=== PATIENT | female | born 1955 | race Caucasian/White ===

== ENCOUNTER 2020-03-16 13:53 | Emergency (ER) | payer MEDICARE, MEDICAID ==
[~2020-03-16] VITALS: Ht 154.9 cm; Wt 61.8 kg
[~2020-03-16 13:53] MED LIST: CALC-839 PR; CALC1TAB81 PO; CARB15DR91 EACH EAR; CYCL1DRO EACHEYE; ESCI10TA45 PO; HYDR200T84 PO; HYDR25SU48 RC; LEVE500T99 PO; LEVO50TA67 PO; MELO-82 PO; OMEP-84 PO; TRAZ-91 PO; [UNRECOGNIZED DRUG - CODE] PO
[2020-03-16 16:59] VITALS: BP 149/82
== END 2020-03-16 17:02 | disposition home or self-care (01) ==
LOC: ER 13:53
DX: M79.604 Pain in right leg (principal); J44.9 Chronic obstructive pulmonary disease, unspecified; K21.9 Gastro-esophageal reflux disease without esophagitis; E03.9 Hypothyroidism, unspecified; F19.90 Other psychoactive substance use, unspecified, uncomplicated; Z88.5 Allergy status to narcotic agent; Z79.899 Other long term (current) drug therapy
CPT/HCPCS: 72128; 72131; 73700; 93971; 99285

== ENCOUNTER 2020-08-24 14:36 | Emergency (ER) | payer MEDICARE, MEDICAID ==
[~2020-08-24] VITALS: Ht 144.8 cm; Wt 65.0 kg
--- NOTE | 2020-08-24 15:08 | NUR ---
PT TO CT
[2020-08-24] MEDS ORDERED: LIDOcaine/PRILOcaine 5gm cream TP ONE (15:10)
[2020-08-24 15:11] LABS: BASOPHILS % (AUTO) 0.6 % (0-1); EOSINOPHILS # (AUTO) 0.1 X10'3 (0-0.9); HEMATOCRIT 41.5 % (35.0-45.0); HEMOGLOBIN 13.8 g/dl (12.0-16.0); LYMPHOCYTES # (AUTO) 1.2 X10'3 (1.1-4.8); LYMPHOCYTES % (AUTO) 28.7 % (21-51); MEAN CORPUSCULAR HEMOGLOBIN 31.8 PG (27.0-31.0); MEAN CORPUSCULAR HGB CONC 33.3 g/dL (33.0-36.5); MEAN CORPUSCULAR VOLUME 95.5 FL (78-98); MONOCYTES # (AUTO) 0.8 X10'3 (0-0.9); MONOCYTES % (AUTO) 20.7 % (2-12); NEUTROPHILS # (AUTO) 1.9 X10'3 (1.8-7.7); PLATELET COUNT 162 X10'3 (140-440); RED BLOOD COUNT 4.34 X10'6 (4.20-5.60); RED CELL DISTRIBUTION WIDTH 14.3 % (11.5-14.5)
[2020-08-24 15:24] LABS: ALANINE AMINOTRANSFERASE 21 U/L (12-78); ALBUMIN 3.9 G/DL (3.4-5.0); ALBUMIN/GLOBULIN RATIO 0.9 (1.1-1.5); ALKALINE PHOSPHATASE 76 IU/L (46-116); ANION GAP 9 (8-16); ASPARTATE AMINO TRANSFERASE 21 U/L (10-37); BILIRUBIN,TOTAL 0.3 MG/DL (0.1-1.0); BLOOD UREA NITROGEN 26 MG/DL (7-18); BUN/CREATININE RATIO 38.8 (6.6-38.0); CALCIUM 9.2 MG/DL (8.5-10.1); CHLORIDE 103 MMOL/L (99-107); CREATININE 0.67 MG/DL (0.40-0.90); GLUCOSE 106 MG/DL (70-104); POTASSIUM 4.6 MMOL/L (3.5-5.1); SODIUM 141 MMOL/L (135-145); TOTAL CARBON DIOXIDE 28.6 MMOL/L (24-32); TOTAL PROTEIN 8.2 G/DL (6.4-8.2); eGFR 89 ML/MIN
[2020-08-24 15:41] LABS: PLATELET ESTIMATE NORMAL; TOTAL CELLS COUNTED 100
[2020-08-24] MEDS ORDERED: normal saline 1000ml 1,000 ML IV ONE (16:45)
[2020-08-24] MEDS ORDERED: bacitracin 15gm ointment TP ONE (16:55)
--- NOTE | 2020-08-24 16:55 | NUR ---
Wound cleaned with peroxide and ns.
[2020-08-24 17:05] VITALS: BP 155/75
--- NOTE | 2020-08-24 17:15 | NUR ---
OK TO DC URINALYSIS, PER DR YOUNGER
--- NOTE | 2020-08-24 17:31 | NUR ---
DR YOUNGER IN ROOM FOR SUTURING.
[2020-08-24] MEDS ORDERED: TETanus/Pertussis (Acell)/Diphther VAC/PF (Tdap-Adult) 0.5ml syringe IMVAC ONE (17:35)
== END 2020-08-24 18:24 | disposition home or self-care (01) ==
LOC: ER 14:37
DX: S12.590A Other displaced fracture of sixth cervical vertebra, initial encounter for closed fracture (principal); S01.81XA Laceration without foreign body of other part of head, initial encounter; J44.9 Chronic obstructive pulmonary disease, unspecified; K21.9 Gastro-esophageal reflux disease without esophagitis; E03.9 Hypothyroidism, unspecified; Z20.3 Contact with and (suspected) exposure to rabies; Z86.69 Personal history of other diseases of the nervous system and sense organs; Z88.5 Allergy status to narcotic agent; Z88.8 Allergy status to other drugs, medicaments and biological substances; Z79.899 Other long term (current) drug therapy; W19.XXXA Unspecified fall, initial encounter; Y93.89 Activity, other specified; Y92.89 Other specified places as the place of occurrence of the external cause; Y99.8 Other external cause status
CPT/HCPCS: 12011; 36415; 70450; 72125; 80053; 83735; 85007; 85025; 90471; 90715; 99285

== ENCOUNTER 2020-09-05 10:39 | Emergency (ER) | payer MEDICARE, MEDICAID ==
[~2020-09-05] VITALS: Ht 144.8 cm; Wt 61.8 kg
[2020-09-05 10:59] VITALS: BP 126/81
[2020-09-05 12:19] LABS: BASOPHILS % (AUTO) 0.9 % (0-1); EOSINOPHILS # (AUTO) 0.1 X10'3 (0-0.9); HEMATOCRIT 42.1 % (35.0-45.0); HEMOGLOBIN 14.4 g/dl (12.0-16.0); LYMPHOCYTES # (AUTO) 1.1 X10'3 (1.1-4.8); MEAN CORPUSCULAR HEMOGLOBIN 32.1 PG (27.0-31.0); MEAN CORPUSCULAR HGB CONC 34.2 g/dL (33.0-36.5); MEAN CORPUSCULAR VOLUME 93.8 FL (78-98); MEAN PLATELET VOLUME 7.6 FL (7.4-10.4); MONOCYTES # (AUTO) 0.5 X10'3 (0-0.9); MONOCYTES % (AUTO) 12.4 % (2-12); NEUTROPHILS # (AUTO) 2.6 X10'3 (1.8-7.7); NEUTROPHILS % (AUTO) 59.7 % (42-75); PLATELET COUNT 213 X10'3 (140-440); RED BLOOD COUNT 4.48 X10'6 (4.20-5.60); RED CELL DISTRIBUTION WIDTH 14.1 % (11.5-14.5); WHITE BLOOD COUNT 4.4 X10'3 (4.5-11.0)
[2020-09-05] MEDS ORDERED: AMOX-422 PO (12:25)
[2020-09-05 12:26] LABS: PARTIAL THROMBOPLASTIN TIME 30 SECONDS (22-32)
[2020-09-05 12:28] LABS: ALANINE AMINOTRANSFERASE 18 U/L (12-78); ALBUMIN 3.8 G/DL (3.4-5.0); ALBUMIN/GLOBULIN RATIO 0.8 (1.1-1.5); ALKALINE PHOSPHATASE 88 IU/L (46-116); ANION GAP 8 (8-16); ASPARTATE AMINO TRANSFERASE 18 U/L (10-37); BILIRUBIN,TOTAL 0.3 MG/DL (0.1-1.0); BLOOD UREA NITROGEN 26 MG/DL (7-18); BUN/CREATININE RATIO 37.1 (6.6-38.0); CALCIUM 9.7 MG/DL (8.5-10.1); CHLORIDE 104 MMOL/L (99-107); GLUCOSE 94 MG/DL (70-104); POTASSIUM 4.6 MMOL/L (3.5-5.1); SODIUM 139 MMOL/L (135-145); TOTAL CARBON DIOXIDE 27.4 MMOL/L (24-32); TOTAL PROTEIN 8.5 G/DL (6.4-8.2); eGFR 85 ML/MIN
== END 2020-09-05 12:58 | disposition home or self-care (01) ==
LOC: ER 10:41
DX: S01.81XD Laceration without foreign body of other part of head, subsequent encounter (principal); L03.211 Cellulitis of face; Z48.00 Encounter for change or removal of nonsurgical wound dressing; R62.50 Unspecified lack of expected normal physiological development in childhood; G43.909 Migraine, unspecified, not intractable, without status migrainosus; J44.9 Chronic obstructive pulmonary disease, unspecified; K21.9 Gastro-esophageal reflux disease without esophagitis; E03.9 Hypothyroidism, unspecified; Z79.899 Other long term (current) drug therapy; Z79.2 Long term (current) use of antibiotics; Z88.6 Allergy status to analgesic agent; Z88.8 Allergy status to other drugs, medicaments and biological substances; X58.XXXD Exposure to other specified factors, subsequent encounter
CPT/HCPCS: 36415; 80053; 83605; 85025; 85610; 85730; 99283

== ENCOUNTER 2020-09-10 08:56 | Emergency (ER) | payer MEDICARE, OTHER ==
[~2020-09-10] VITALS: Ht 144.8 cm; Wt 62.3 kg
[~2020-09-10 08:56] MED LIST changes: +AMOX-422 PO
[2020-09-10 10:00] VITALS: BP 120/68
[2020-09-10 10:08] LABS: BASOPHILS % (AUTO) 0.9 % (0-1); EOSINOPHILS # (AUTO) 0.2 X10'3 (0-0.9); EOSINOPHILS % (AUTO) 3.8 % (0-6); HEMOGLOBIN 13.2 g/dl (12.0-16.0); LYMPHOCYTES # (AUTO) 1.1 X10'3 (1.1-4.8); LYMPHOCYTES % (AUTO) 25.7 % (21-51); MEAN CORPUSCULAR HGB CONC 33.8 g/dL (33.0-36.5); MEAN CORPUSCULAR VOLUME 94.5 FL (78-98); MEAN PLATELET VOLUME 7.6 FL (7.4-10.4); MONOCYTES # (AUTO) 0.6 X10'3 (0-0.9); MONOCYTES % (AUTO) 14.3 % (2-12); NEUTROPHILS # (AUTO) 2.3 X10'3 (1.8-7.7); NEUTROPHILS % (AUTO) 55.3 % (42-75); PLATELET COUNT 213 X10'3 (140-440); RED BLOOD COUNT 4.12 X10'6 (4.20-5.60); RED CELL DISTRIBUTION WIDTH 14.4 % (11.5-14.5); WHITE BLOOD COUNT 4.1 X10'3 (4.5-11.0)
[2020-09-10 10:29] LABS: ALANINE AMINOTRANSFERASE 20 U/L (12-78); ALBUMIN 3.4 G/DL (3.4-5.0); ALBUMIN/GLOBULIN RATIO 0.8 (1.1-1.5); ALKALINE PHOSPHATASE 76 IU/L (46-116); ANION GAP 8 (8-16); ASPARTATE AMINO TRANSFERASE 23 U/L (10-37); BILIRUBIN,TOTAL 0.3 MG/DL (0.1-1.0); BLOOD UREA NITROGEN 24 MG/DL (7-18); BUN/CREATININE RATIO 29.6 (6.6-38.0); CALCIUM 9.3 MG/DL (8.5-10.1); CHLORIDE 105 MMOL/L (99-107); CREATININE 0.81 MG/DL (0.40-0.90); GLUCOSE 93 MG/DL (70-104); POTASSIUM 4.8 MMOL/L (3.5-5.1); SODIUM 142 MMOL/L (135-145); TOTAL CARBON DIOXIDE 29.3 MMOL/L (24-32); TOTAL PROTEIN 7.7 G/DL (6.4-8.2); eGFR 71 ML/MIN
[2020-09-10] MEDS ORDERED: HYDR25SU32 RC (11:36)
== END 2020-09-10 12:02 | disposition home or self-care (01) ==
LOC: ER 08:56
DX: R19.7 Diarrhea, unspecified (principal); K92.2 Gastrointestinal hemorrhage, unspecified; J44.9 Chronic obstructive pulmonary disease, unspecified; K21.9 Gastro-esophageal reflux disease without esophagitis; E03.9 Hypothyroidism, unspecified; Z86.69 Personal history of other diseases of the nervous system and sense organs; Z88.5 Allergy status to narcotic agent; Z88.8 Allergy status to other drugs, medicaments and biological substances; Z79.2 Long term (current) use of antibiotics; Z79.899 Other long term (current) drug therapy
CPT/HCPCS: 36415; 80053; 85025; 85610; 99284

== ENCOUNTER 2022-01-09 18:06 | Inpatient (IN) | payer MEDICARE, MEDICAID ==
[~2022-01-09] VITALS: Ht 154.9 cm; Wt 62.3 kg
[~2022-01-09 18:06] MED LIST changes: -AMOX-422 PO; +HYDR25SU32 RC
[2022-01-09] MEDS ORDERED: normal saline 1000ML IV soln IVB ONE (18:45)
[2022-01-09 19:19] LABS: BASOPHILS % (AUTO) 0.5 % (0-1); EOSINOPHILS % (AUTO) 0.7 % (0-6); HEMATOCRIT 26.8 % (35.0-45.0); LYMPHOCYTES # (AUTO) 1.2 X10'3 (1.1-4.8); LYMPHOCYTES % (AUTO) 21.3 % (21-51); MEAN CORPUSCULAR HGB CONC 33.5 g/dL (33.0-36.5); MEAN CORPUSCULAR VOLUME 92.7 FL (78-98); MEAN PLATELET VOLUME 8.2 FL (7.4-10.4); MONOCYTES # (AUTO) 0.6 X10'3 (0-0.9); MONOCYTES % (AUTO) 11.3 % (2-12); NEUTROPHILS # (AUTO) 3.7 X10'3 (1.8-7.7); NEUTROPHILS % (AUTO) 66.2 % (42-75); PLATELET COUNT 185 X10'3 (140-440); RED BLOOD COUNT 2.89 X10'6 (4.20-5.60); RED CELL DISTRIBUTION WIDTH 14.3 % (11.5-14.5); WHITE BLOOD COUNT 5.6 X10'3 (4.5-11.0)
[2022-01-09 19:30] LABS: ALANINE AMINOTRANSFERASE 15 U/L (12-78); ALBUMIN/GLOBULIN RATIO 0.9 (1.1-1.5); ALKALINE PHOSPHATASE 58 IU/L (46-116); ANION GAP 8 (8-16); ASPARTATE AMINO TRANSFERASE 16 U/L (10-37); BILIRUBIN,TOTAL 0.1 MG/DL (0.1-1.0); BLOOD UREA NITROGEN 16 MG/DL (7-18); BUN/CREATININE RATIO 20.3 (6.6-38.0); CHLORIDE 101 MMOL/L (99-107); CREATININE 0.79 MG/DL (0.40-0.90); GLUCOSE 124 MG/DL (70-104); LIPASE 123 U/L (73-393); POTASSIUM 4.5 MMOL/L (3.5-5.1); SODIUM 136 MMOL/L (135-145); TOTAL CARBON DIOXIDE 26.9 MMOL/L (24-32); TOTAL PROTEIN 6.4 G/DL (6.4-8.2); eGFR 73 ML/MIN
[2022-01-09 19:36] LABS: CALCIUM 8.7 MG/DL (8.5-10.1)
[2022-01-09 19:57] LABS: CLARITY,URINE CLEAR (Clear); COLOR,URINE YELLOW (Yellow); GLUCOSE, URINE NEGATIVE (Neg); KETONES,URINE NEGATIVE (Neg); LEUKOCYTE ESTERASE ,URINE NEGATIVE (Neg); NITRITES, URINE NEGATIVE (Neg); OCCULT BLOOD,URINE NEGATIVE (Neg); PROTEIN,URINE NEGATIVE (Neg); UROBILINOGEN,URINE 0.2 E.U/dL (0.2-1.0)
[2022-01-09 19:58] LABS: UA COLLECTION TYPE STRAIGHT CATH
[2022-01-09] MEDS ORDERED: ALEN70TA80 PO (19:59)
[2022-01-09] MEDS ORDERED: HYDR25SU48 RC (19:59)
[2022-01-09] MEDS ORDERED: BISA10SU11 RC (20:01)
[2022-01-09] MEDS ORDERED: HYDR200T84 PO (20:05)
[2022-01-09] MEDS ORDERED: OMEG-133 PO ×2 (20:05→22:10)
[2022-01-09] MEDS ORDERED: LACT30003 PO (20:08)
[2022-01-09] MEDS ORDERED: LORA-269 PO (20:13)
[2022-01-09] MEDS ORDERED: MAGN250T11 PO (20:14)
[2022-01-09] MEDS ORDERED: acetaminophen 325mg tablet PO PRN (20:15)
[2022-01-09] MEDS ORDERED: POTASSIUM BICARB 20meq eff tab 20 MEQ TABLET.EFF PO PRN ×2 (20:15)
[2022-01-09] MEDS ORDERED: ondansetron/PF 4mg/2ml inj IV PRN (20:15)
[2022-01-09] MEDS ORDERED: magnesium 2GM in 50ml NS 50 ML IV PRN (20:15)
[2022-01-09] MEDS ORDERED: mag hydrox/Alum hydrox/simeth 30ml oral suspension PO PRN (20:15)
[2022-01-09] MEDS ORDERED: magnesium 4gm in 100ml NS 100 ML IV PRN (20:15)
[2022-01-09] MEDS ORDERED: potassium CL 10mEq/100ml bag 100 ML IV PRN (20:15)
[2022-01-09] MEDS ORDERED: magnesium hydroxide 30ml (MOM) UD suspension PO PRN ×2 (20:15→22:30)
[2022-01-09] MEDS ORDERED: LACO100T4 PO (20:31)
[2022-01-09 20:41] LABS: OCCULT BLOOD STOOL POSITIVE (Neg)
[2022-01-09] MEDS: pantoprazole 40MG/NS 100ML BAG 100 ML IV SCH (21:36)
[2022-01-09] MEDS ORDERED: CARB15DR91 EACH EAR (22:10)
[2022-01-09] MEDS ORDERED: CHOL400T8 PO (22:10)
[2022-01-09] MEDS ORDERED: ASCO-134 PO (22:10)
[2022-01-09] MEDS ORDERED: ROBDML PO (22:10)
[2022-01-09] MEDS ORDERED: CALC500T11 PO (22:10)
[2022-01-09] MEDS ORDERED: LEVE500T PO (22:10)
[2022-01-09] MEDS ORDERED: ESCI5TAB17 PO (22:10)
[2022-01-09] MEDS ORDERED: DIVA500T9 PO (22:10)
[2022-01-09] MEDS ORDERED: LACT1TAB6 PO (22:10)
[2022-01-09] MEDS ORDERED: DOCU100C40 PO (22:10)
[2022-01-09] MEDS ORDERED: MAGN400O6 PO (22:10)
--- NOTE | 2022-01-09 22:19 | NUR ---
Per caregiver: Pt is lactose intolerant. She takes her pills whole in lactose free yogurt. Her diet consistency is blended.
--- NOTE | 2022-01-09 22:19 | NUR ---
PAGER ID: [phone] MESSAGE: Andie Eddy O/N [id number] A needs her keppra and vimpat ordered for tonight and she will also need fluid orders. (npo)
[2022-01-09] MEDS ORDERED: guaiFENesin/DM 10ml UD oral syrup PO PRN (22:30)
[2022-01-09] MEDS ORDERED: LORazepam 1 MG tablet PO PRN (22:30)
[2022-01-09] MEDS ORDERED: bisacodyl 10mg suppository rectal RC PRN (22:30)
[2022-01-09] MEDS ORDERED: non-formulary drug (Alendronate Sodium 1 TAB) PO SCH (22:30)
[2022-01-09] MEDS ORDERED: levetiracetam 100mg/ml oral solution 5ml UD cup PO ONE (22:35)
[2022-01-09 22:40] VITALS: BP 132/46
[2022-01-09] MEDS: levetiracetam 250mg tablet PO SCH (23:35)
[2022-01-10] VITALS (14 sets, daily range): BP systolic 126–150; BP diastolic 53–113
[2022-01-10] MEDS: pantoprazole 40MG/NS 100ML BAG 100 ML IV SCH ×5 (01:53→22:34)
[2022-01-10 06:13] LABS: HEMATOCRIT 24.4 % (35.0-45.0); HEMOGLOBIN 8.1 g/dl (12.0-16.0); MEAN CORPUSCULAR HGB CONC 33.2 g/dL (33.0-36.5); MEAN CORPUSCULAR VOLUME 93.2 FL (78-98); MEAN PLATELET VOLUME 7.9 FL (7.4-10.4); PLATELET COUNT 183 X10'3 (140-440); RED BLOOD COUNT 2.61 X10'6 (4.20-5.60); RED CELL DISTRIBUTION WIDTH 14.6 % (11.5-14.5); WHITE BLOOD COUNT 6.9 X10'3 (4.5-11.0)
--- NOTE | 2022-01-10 06:41 | NUR ---
Patient in room ORTHO 4015. I have received report from LELE Billy and had the opportunity to ask questions and assume patient care.
[2022-01-10 06:47] LABS: ALANINE AMINOTRANSFERASE 13 U/L (12-78); ALBUMIN 3.1 G/DL (3.4-5.0); ALKALINE PHOSPHATASE 51 IU/L (46-116); ANION GAP 9 (8-16); ASPARTATE AMINO TRANSFERASE 19 U/L (10-37); BILIRUBIN,TOTAL 0.2 MG/DL (0.1-1.0); BLOOD UREA NITROGEN 11 MG/DL (7-18); BUN/CREATININE RATIO 17.7 (6.6-38.0); CALCIUM 8.7 MG/DL (8.5-10.1); CHLORIDE 107 MMOL/L (99-107); CREATININE 0.62 MG/DL (0.40-0.90); GLUCOSE 101 MG/DL (70-104); POTASSIUM 4.4 MMOL/L (3.5-5.1); SODIUM 141 MMOL/L (135-145); TOTAL CARBON DIOXIDE 24.9 MMOL/L (24-32); TOTAL PROTEIN 6.2 G/DL (6.4-8.2); eGFR > 90 ML/MIN
[2022-01-10] MEDS: levoTHYROXINE 25mcg tablet PO SCH (07:26)
[2022-01-10] MEDS: ESCITALOPRAM OXALATE 5 MG TABLET PO SCH (07:26)
[2022-01-10] MEDS: pantoprazole 40mg Tablet.DR PO SCH (07:26)
[2022-01-10] MEDS: magnesium oxide 400mg tablet PO SCH (07:26)
[2022-01-10] MEDS: LACOSAMIDE 50 MG TABLET PO SCH ×2 (07:27→20:28)
[2022-01-10] MEDS: docusate sod 100mg capsule PO SCH ×4 (07:27→20:28)
[2022-01-10] MEDS: lactobacillus rhamnosus 10,000 MMU CELLS/CAPSULE PO SCH (07:28)
[2022-01-10] MEDS: ascorbic acid 500mg tablet PO SCH ×2 (07:28→20:28)
[2022-01-10] MEDS: OMEGA-3/DHA/EPA/FISH OIL 1 EACH CAPSULE.DR PO SCH (07:28)
[2022-01-10] MEDS: levetiracetam 250mg tablet PO SCH ×2 (07:28→20:29)
[2022-01-10] MEDS: cholecalciferol (vitamin D3) 400 unit (10mcg) tablet PO SCH (07:29)
[2022-01-10] MEDS: hydroxychloroquine 200mg tablet PO SCH (07:29)
[2022-01-10] MEDS: cycloSPORINE 0.05% ophthalmic emulsion EACHEYE SCH ×2 (07:29→20:30)
[2022-01-10] MEDS: hydrocortisone acetate 25mg rectal suppository RC SCH ×2 (07:29→20:28)
[2022-01-10] MEDS: calcium carbonate 500mg chew tablet PO SCH ×3 (07:30→17:57)
[2022-01-10] MEDS: divalproex sod 250mg ER (24-hour) tablet PO SCH (07:30)
[2022-01-10] MEDS: K and/or MAG REPLACEMENT MC SCH ×2 (08:00→20:00)
[2022-01-10] MEDS ORDERED: LACTASE 9000 UNIT PO SCH (08:00)
--- NOTE | 2022-01-10 10:44 | NUR ---
Patients mother yasmine called with updated phone number [phone]. Let Yasmine know to standby for phone call as Dr. Alegre is trying to reach her. Called to Dr Alegre number [phone] awaiting call back.
[2022-01-10 11:17] LABS: HEMATOCRIT 22.9 % (35.0-45.0); HEMOGLOBIN 7.6 g/dl (12.0-16.0); MEAN CORPUSCULAR HEMOGLOBIN 30.8 PG (27.0-31.0); MEAN CORPUSCULAR HGB CONC 33.4 g/dL (33.0-36.5); MEAN CORPUSCULAR VOLUME 92.2 FL (78-98); MEAN PLATELET VOLUME 7.8 FL (7.4-10.4); PLATELET COUNT 173 X10'3 (140-440); RED BLOOD COUNT 2.48 X10'6 (4.20-5.60); RED CELL DISTRIBUTION WIDTH 14.5 % (11.5-14.5)
[2022-01-10 11:28] LABS: APTT 26 SECONDS (22-32)
--- NOTE | 2022-01-10 12:13 | NUR ---
Patient down to GI lab.
[2022-01-10] MEDS ORDERED: MIDAZolam 1 MG/ML 5ML VIAL ONE (12:33)
[2022-01-10] MEDS ORDERED: fentaNYL/PF 50MCG/1 ML 2ML syringe ONE (12:33)
[2022-01-10] MEDS ORDERED: LIDOcaine Viscous 15ml cup ONE (12:33)
--- NOTE | 2022-01-10 18:36 | NUR ---
Problems reprioritized. Patient report given, questions answered & plan of care reviewed with Hortensia Rn.
[2022-01-10 20:11] LABS: HEMOGLOBIN 7.4 g/dl (12.0-16.0); MEAN CORPUSCULAR HEMOGLOBIN 31.2 PG (27.0-31.0); MEAN CORPUSCULAR HGB CONC 33.7 g/dL (33.0-36.5); MEAN CORPUSCULAR VOLUME 92.4 FL (78-98); MEAN PLATELET VOLUME 7.4 FL (7.4-10.4); PLATELET COUNT 177 X10'3 (140-440); RED BLOOD COUNT 2.37 X10'6 (4.20-5.60); RED CELL DISTRIBUTION WIDTH 14.4 % (11.5-14.5); WHITE BLOOD COUNT 6.5 X10'3 (4.5-11.0)
[2022-01-10 20:15] LABS: HEMATOCRIT 21.9 % (35.0-45.0)
[2022-01-10 20:25] LABS: % IRON SATURATION 7 % (11-46); IRON 24 UG/DL (49-151); TOTAL IRON BINDING CAPACITY 334 UG/DL (259-388)
[2022-01-11] VITALS (8 sets, daily range): BP systolic 120–147; BP diastolic 59–91
[2022-01-11] MEDS: pantoprazole 40MG/NS 100ML BAG 100 ML IV SCH ×2 (05:18→06:00)
[2022-01-11 06:08] LABS: HEMOGLOBIN 7.1 g/dl (12.0-16.0); MEAN CORPUSCULAR HEMOGLOBIN 31.4 PG (27.0-31.0); MEAN CORPUSCULAR HGB CONC 33.3 g/dL (33.0-36.5); MEAN CORPUSCULAR VOLUME 94.4 FL (78-98); MEAN PLATELET VOLUME 8.1 FL (7.4-10.4); PLATELET COUNT 180 X10'3 (140-440); RED BLOOD COUNT 2.25 X10'6 (4.20-5.60); RED CELL DISTRIBUTION WIDTH 14.8 % (11.5-14.5); WHITE BLOOD COUNT 6.7 X10'3 (4.5-11.0)
[2022-01-11 06:13] LABS: HEMATOCRIT 21.2 % (35.0-45.0)
--- NOTE | 2022-01-11 06:21 | NUR ---
PAGED DR DAVIS RE: PAGER ID: [phone] MESSAGE: EMILY MARTINEZ. [facility] 7.1 HCT 21.2. NOAH 5430 O/N Addendum: 01/11/22 at 0623 by Sherlyn Dougherty RN PER DR DAVIS, GET TYPE AND SCREEN. NO TRANSFUSION AT THIS TIME
[2022-01-11 06:30] LABS: ALANINE AMINOTRANSFERASE 15 U/L (12-78); ALBUMIN/GLOBULIN RATIO 0.9 (1.1-1.5); ALKALINE PHOSPHATASE 56 IU/L (46-116); ANION GAP 8 (8-16); ASPARTATE AMINO TRANSFERASE 19 U/L (10-37); BILIRUBIN,TOTAL 0.2 MG/DL (0.1-1.0); BLOOD UREA NITROGEN 7 MG/DL (7-18); BUN/CREATININE RATIO 10.9 (6.6-38.0); CALCIUM 8.7 MG/DL (8.5-10.1); CHLORIDE 106 MMOL/L (99-107); CREATININE 0.64 MG/DL (0.40-0.90); GLUCOSE 91 MG/DL (70-104); POTASSIUM 4.2 MMOL/L (3.5-5.1); SODIUM 141 MMOL/L (135-145); TOTAL CARBON DIOXIDE 27.1 MMOL/L (24-32); TOTAL PROTEIN 6.4 G/DL (6.4-8.2); eGFR > 90 ML/MIN
--- NOTE | 2022-01-11 06:45 | NUR ---
Patient in room ORTHO 4015. I have received report from CALLY RN and had the opportunity to ask questions and assume patient care.
[2022-01-11] MEDS: K and/or MAG REPLACEMENT MC SCH ×2 (08:00→20:00)
[2022-01-11] MEDS: docusate sod 100mg capsule PO SCH ×4 (08:00→20:12)
[2022-01-11] MEDS: levoTHYROXINE 25mcg tablet PO SCH (08:56)
[2022-01-11] MEDS: magnesium oxide 400mg tablet PO SCH (08:56)
[2022-01-11] MEDS: pantoprazole 40mg Tablet.DR PO SCH (08:56)
[2022-01-11] MEDS: calcium carbonate 500mg chew tablet PO SCH ×3 (08:57→20:12)
[2022-01-11] MEDS: OMEGA-3/DHA/EPA/FISH OIL 1 EACH CAPSULE.DR PO SCH (08:57)
[2022-01-11] MEDS: cholecalciferol (vitamin D3) 400 unit (10mcg) tablet PO SCH (08:57)
[2022-01-11] MEDS: ascorbic acid 500mg tablet PO SCH ×2 (08:57→20:12)
[2022-01-11] MEDS: ESCITALOPRAM OXALATE 5 MG TABLET PO SCH (08:57)
[2022-01-11] MEDS: hydrocortisone acetate 25mg rectal suppository RC SCH ×2 (08:57→20:12)
[2022-01-11] MEDS: hydroxychloroquine 200mg tablet PO SCH (08:57)
[2022-01-11] MEDS: levetiracetam 250mg tablet PO SCH ×2 (08:57→20:13)
[2022-01-11] MEDS: lactobacillus rhamnosus 10,000 MMU CELLS/CAPSULE PO SCH (08:57)
[2022-01-11] MEDS: LACOSAMIDE 50 MG TABLET PO SCH ×2 (08:57→20:12)
[2022-01-11] MEDS: divalproex sod 250mg ER (24-hour) tablet PO SCH (08:57)
[2022-01-11] MEDS: cycloSPORINE 0.05% ophthalmic emulsion EACHEYE SCH ×2 (08:58→20:13)
[2022-01-11 10:57] LABS: MEAN CORPUSCULAR HGB CONC 33.4 g/dL (33.0-36.5); MEAN CORPUSCULAR VOLUME 92.9 FL (78-98); MEAN PLATELET VOLUME 7.9 FL (7.4-10.4); PLATELET COUNT 168 X10'3 (140-440); RED BLOOD COUNT 2.11 X10'6 (4.20-5.60); RED CELL DISTRIBUTION WIDTH 14.4 % (11.5-14.5); WHITE BLOOD COUNT 5.2 X10'3 (4.5-11.0)
[2022-01-11 10:59] LABS: HEMATOCRIT 19.6 % (35.0-45.0); HEMOGLOBIN 6.5 g/dl (12.0-16.0)
[2022-01-11] MEDS ORDERED: tranexamic acid 1gm/0.7% sal. 100 ML IV ONE (11:15)
[2022-01-11] MEDS ORDERED: tranexamic acid inj. 1,000 MG in normal saline 100ml IV soln 100 ML IV ONE (11:40)
[2022-01-11 13:17] LABS: % IRON SATURATION 10 % (11-46); IRON 32 UG/DL (49-151); TOTAL IRON BINDING CAPACITY 307 UG/DL (259-388)
--- NOTE | 2022-01-11 18:45 | NUR ---
Problems reprioritized. Patient report given, questions answered & plan of care reviewed with PAT RN.
[2022-01-11 19:11] LABS: HEMATOCRIT 26.1 % (35.0-45.0); HEMOGLOBIN 8.7 g/dl (12.0-16.0); MEAN CORPUSCULAR HEMOGLOBIN 30.8 PG (27.0-31.0); MEAN CORPUSCULAR HGB CONC 33.5 g/dL (33.0-36.5); MEAN CORPUSCULAR VOLUME 91.8 FL (78-98); MEAN PLATELET VOLUME 7.7 FL (7.4-10.4); PLATELET COUNT 159 X10'3 (140-440); RED BLOOD COUNT 2.84 X10'6 (4.20-5.60); RED CELL DISTRIBUTION WIDTH 14.7 % (11.5-14.5); WHITE BLOOD COUNT 5.5 X10'3 (4.5-11.0)
[2022-01-12 06:00] VITALS: BP 143/74
[2022-01-12 06:15] VITALS: BP 143/74
[2022-01-12 07:16] LABS: HEMATOCRIT 25.2 % (35.0-45.0); HEMOGLOBIN 8.7 g/dl (12.0-16.0); MEAN CORPUSCULAR HEMOGLOBIN 32.6 PG (27.0-31.0); MEAN CORPUSCULAR HGB CONC 34.3 g/dL (33.0-36.5); MEAN CORPUSCULAR VOLUME 94.9 FL (78-98); MEAN PLATELET VOLUME 8.1 FL (7.4-10.4); PLATELET COUNT 168 X10'3 (140-440); RED BLOOD COUNT 2.65 X10'6 (4.20-5.60); RED CELL DISTRIBUTION WIDTH 14.1 % (11.5-14.5); WHITE BLOOD COUNT 5.9 X10'3 (4.5-11.0)
[2022-01-12] MEDS: pantoprazole 40mg Tablet.DR PO SCH (07:30)
[2022-01-12 07:55] LABS: ALANINE AMINOTRANSFERASE 12 U/L (12-78); ALBUMIN 2.9 G/DL (3.4-5.0); ALBUMIN/GLOBULIN RATIO 0.9 (1.1-1.5); ALKALINE PHOSPHATASE 63 IU/L (46-116); ANION GAP 9 (8-16); ASPARTATE AMINO TRANSFERASE 18 U/L (10-37); BILIRUBIN,TOTAL 0.2 MG/DL (0.1-1.0); BLOOD UREA NITROGEN 6 MG/DL (7-18); BUN/CREATININE RATIO 10.7 (6.6-38.0); CALCIUM 8.6 MG/DL (8.5-10.1); CHLORIDE 105 MMOL/L (99-107); CREATININE 0.56 MG/DL (0.40-0.90); GLUCOSE 93 MG/DL (70-104); POTASSIUM 4.1 MMOL/L (3.5-5.1); SODIUM 141 MMOL/L (135-145); TOTAL CARBON DIOXIDE 27.1 MMOL/L (24-32); TOTAL PROTEIN 6.2 G/DL (6.4-8.2); eGFR > 90 ML/MIN
--- NOTE | 2022-01-12 07:57 | NUR ---
Problems reprioritized. Patient report given, questions answered & plan of care reviewed with dayne nolan.
[2022-01-12] MEDS: ESCITALOPRAM OXALATE 5 MG TABLET PO SCH (08:00)
[2022-01-12] MEDS: hydrocortisone acetate 25mg rectal suppository RC SCH (08:00)
[2022-01-12] MEDS: OMEGA-3/DHA/EPA/FISH OIL 1 EACH CAPSULE.DR PO SCH (08:00)
[2022-01-12] MEDS: K and/or MAG REPLACEMENT MC SCH (08:00)
[2022-01-12] MEDS: magnesium oxide 400mg tablet PO SCH (08:00)
[2022-01-12] MEDS: levoTHYROXINE 25mcg tablet PO SCH (08:00)
[2022-01-12] MEDS: divalproex sod 250mg ER (24-hour) tablet PO SCH (08:00)
[2022-01-12] MEDS: LACOSAMIDE 50 MG TABLET PO SCH (08:00)
[2022-01-12] MEDS: docusate sod 100mg capsule PO SCH ×2 (08:00)
[2022-01-12] MEDS: cycloSPORINE 0.05% ophthalmic emulsion EACHEYE SCH (08:00)
[2022-01-12] MEDS: levetiracetam 250mg tablet PO SCH (08:00)
[2022-01-12] MEDS: hydroxychloroquine 200mg tablet PO SCH (08:00)
[2022-01-12] MEDS: lactobacillus rhamnosus 10,000 MMU CELLS/CAPSULE PO SCH (08:00)
[2022-01-12] MEDS: cholecalciferol (vitamin D3) 400 unit (10mcg) tablet PO SCH (08:00)
--- NOTE | 2022-01-12 08:27 | NUR ---
Olvin Consult: Gerald Ortega w/ skin intact per EMR. Addendum: 01/12/22 at [address] Amended: Links added.
[2022-01-12] MEDS: ferrous sulfate 300mg/5ml UD oral liquid PO SCH ×2 (08:30→12:30)
[2022-01-12] MEDS: calcium carbonate 500mg chew tablet PO SCH ×2 (08:30→12:30)
[2022-01-12] MEDS: ascorbic acid 500mg tablet PO SCH ×2 (08:30→12:30)
--- NOTE | 2022-01-12 09:16 | NUR ---
Attempted am medication admin but pt spit out all attempted meds (All Keppra except 1 tablet and spit out Lexapro tab) Pt is resisting am med pass. Primary RN Anushka notified.
--- NOTE | 2022-01-12 09:36 | NUR ---
PAGER ID: [phone] MESSAGE: Anushka [phone] RE: Andie Eddy - attempted to give her the morning meds. Patient spit out meds and refusing to take them.
--- NOTE | 2022-01-12 09:36 | NUR ---
notified of the patient's inability to take the meds.
[2022-01-12 10:00] VITALS: BP 143/50
[2022-01-12 11:23] LABS: HEMATOCRIT 27.1 % (35.0-45.0); HEMOGLOBIN 9.3 g/dl (12.0-16.0); MEAN CORPUSCULAR HEMOGLOBIN 32.2 PG (27.0-31.0); MEAN CORPUSCULAR HGB CONC 34.5 g/dL (33.0-36.5); MEAN CORPUSCULAR VOLUME 93.3 FL (78-98); MEAN PLATELET VOLUME 7.7 FL (7.4-10.4); PLATELET COUNT 185 X10'3 (140-440); RED CELL DISTRIBUTION WIDTH 14.7 % (11.5-14.5); WHITE BLOOD COUNT 5.9 X10'3 (4.5-11.0)
[2022-01-12] MEDS ORDERED: FER300L PO (12:38)
[2022-01-12] MEDS ORDERED: VITC500T PO (12:38)
[2022-01-12] MEDS ORDERED: PANT20TA18 PO (12:52)
--- NOTE | 2022-01-12 14:43 | NUR ---
Marvin Collins, House [employer], from pt's residence arrived to p/u pt. Questions were asked and answered. LELE Reveles, is at bedside.
--- NOTE | 2022-01-12 15:27 | NUR ---
Patient was discharged at 1450 and was picked up by house health administrator. Report has been given and all questions have been answered. All lines and tubes have been removed including PIV with cannula intact. Patient is stable and appropriate for discharge. Patient is returning to [facility] accompanied by house health administrator and facility nurse.
== END 2022-01-12 14:50 | disposition home health service (06) | DRG 378 ==
LOC: ER 18:07 → ED HOLD 20:21 → EDBEDREQ 21:38 → ORTHO 4S 22:22
PROVIDERS: ADMIT Family Medicine; ATTEND Family Medicine
PROC: 0DJ08ZZ Inspection of Upper Intestinal Tract, Via Natural or Artificial Opening Endoscopic (ICD-10-PCS; principal; 2022-01-10)
PROC: 30233N1 Transfusion of Nonautologous Red Blood Cells into Peripheral Vein, Percutaneous Approach (ICD-10-PCS; 2022-01-11)
DX: K92.2 Gastrointestinal hemorrhage, unspecified (principal); D62 Acute posthemorrhagic anemia; K92.1 Melena; M06.9 Rheumatoid arthritis, unspecified; E03.9 Hypothyroidism, unspecified; K64.4 Residual hemorrhoidal skin tags; Z66 Do not resuscitate; D50.9 Iron deficiency anemia, unspecified; R26.2 Difficulty in walking, not elsewhere classified; J44.9 Chronic obstructive pulmonary disease, unspecified; G40.909 Epilepsy, unspecified, not intractable, without status epilepticus; M81.0 Age-related osteoporosis without current pathological fracture; F32.A Depression, unspecified; F41.9 Anxiety disorder, unspecified; K21.9 Gastro-esophageal reflux disease without esophagitis; I95.9 Hypotension, unspecified; R55 Syncope and collapse; Z79.890 Hormone replacement therapy; Z88.5 Allergy status to narcotic agent; Z88.8 Allergy status to other drugs, medicaments and biological substances; Z79.899 Other long term (current) drug therapy
CPT/HCPCS: 36415; 36430; 43235; 80053; 81003; 82272; 82607; 83540; 83550; 83690; 84145; 84443; 85025; 85027; 85610; 85730; 86885; 86900; 86901; 86920; 87081; 92508; 92616; 93005; 96360; 97161; 97530; 99152; 99285; A4353; A4615; A4620; C1758; C9113; G0378; J2250; J3010; J3490; J7030; J7040; J7999; P9016

== ENCOUNTER 2022-02-06 20:08 | Emergency (ER) | payer MEDICARE, MEDICAID ==
[~2022-02-06] VITALS: Ht 162.6 cm; Wt 61.4 kg
[~2022-02-06 20:08] MED LIST changes: +ALEN70TA80 PO; +BISA10SU11 RC; -CALC-839 PR; -CALC1TAB81 PO; +CALC500T11 PO; +CHOL400T8 PO; +DIVA500T9 PO; +DOCU100C40 PO; -ESCI10TA45 PO; +ESCI5TAB17 PO; +FER300L PO; -HYDR25SU32 RC; +LACO100T4 PO; +LACT1TAB6 PO; +LACT30003 PO; +LEVE500T PO; -LEVE500T99 PO; +LORA-269 PO; +MAGN250T11 PO; +MAGN400O6 PO; -MELO-82 PO; +OMEG-133 PO; +PANT20TA18 PO; +ROBDML PO; -TRAZ-91 PO; +VITC500T PO; -[UNRECOGNIZED DRUG - CODE] PO
[2022-02-06 20:57] LABS: EOSINOPHILS # (AUTO) 0.1 X10'3 (0-0.9); EOSINOPHILS % (AUTO) 1.9 % (0-6); HEMOGLOBIN 12.6 g/dl (12.0-16.0); LYMPHOCYTES # (AUTO) 1.3 X10'3 (1.1-4.8); LYMPHOCYTES % (AUTO) 33.1 % (21-51); MEAN CORPUSCULAR HEMOGLOBIN 33.9 PG (27.0-31.0); MEAN CORPUSCULAR HGB CONC 34.1 g/dL (33.0-36.5); MEAN CORPUSCULAR VOLUME 99.5 FL (78-98); MEAN PLATELET VOLUME 7.6 FL (7.4-10.4); MONOCYTES # (AUTO) 0.6 X10'3 (0-0.9); MONOCYTES % (AUTO) 14.3 % (2-12); NEUTROPHILS % (AUTO) 49.7 % (42-75); PLATELET COUNT 195 X10'3 (140-440); RED BLOOD COUNT 3.72 X10'6 (4.20-5.60); RED CELL DISTRIBUTION WIDTH 14.5 % (11.5-14.5)
[2022-02-06 21:00] LABS: ALANINE AMINOTRANSFERASE 17 U/L (12-78); ALBUMIN 3.6 G/DL (3.4-5.0); ALBUMIN/GLOBULIN RATIO 0.9 (1.1-1.5); ALKALINE PHOSPHATASE 107 IU/L (46-116); ANION GAP 5 (8-16); ASPARTATE AMINO TRANSFERASE 19 U/L (10-37); BILIRUBIN,TOTAL 0.2 MG/DL (0.1-1.0); BLOOD UREA NITROGEN 12 MG/DL (7-18); BUN/CREATININE RATIO 16.4 (6.6-38.0); CALCIUM 9.4 MG/DL (8.5-10.1); CHLORIDE 99 MMOL/L (99-107); CREATININE 0.73 MG/DL (0.40-0.90); GLUCOSE 97 MG/DL (70-104); LIPASE 164 U/L (73-393); POTASSIUM 4.7 MMOL/L (3.5-5.1); SODIUM 133 MMOL/L (135-145); TOTAL CARBON DIOXIDE 29.5 MMOL/L (24-32); TOTAL PROTEIN 7.6 G/DL (6.4-8.2); eGFR 80 ML/MIN
--- NOTE | 2022-02-06 21:15 | NUR ---
PT TAKEN TO FAST TRACK ROOM F . PT CAREGIVER DECLINING STRIGHT CATH AT THIS TIME , UNLESS IT IS NECESSARY . "PT IS HER FOR RECTAL BLEEDING NOT UTI OR FEVER , WHY IS SHE BEING CATHED ?"
[2022-02-06] MEDS ORDERED: tranexamic acid inj. 500 MG in normal saline 100ml IV soln 100 ML IV ONE (22:30)
--- NOTE | 2022-02-06 23:25 | NUR ---
pt taken to room 13 for iv start . spoke with dr nguyen about pt order for cath ua . Dr nguyen discontinued the order for ua
[2022-02-07 01:01] VITALS: BP 140/80
== END 2022-02-07 01:03 | disposition home or self-care (01) ==
LOC: ER 20:08
DX: K62.5 Hemorrhage of anus and rectum (principal); R62.50 Unspecified lack of expected normal physiological development in childhood; J44.9 Chronic obstructive pulmonary disease, unspecified; K21.9 Gastro-esophageal reflux disease without esophagitis; E03.9 Hypothyroidism, unspecified; Z86.69 Personal history of other diseases of the nervous system and sense organs; Z88.5 Allergy status to narcotic agent; Z88.8 Allergy status to other drugs, medicaments and biological substances; Z79.899 Other long term (current) drug therapy
CPT/HCPCS: 36415; 80053; 83690; 85025; 96365; 99284; J3490

== ENCOUNTER 2022-02-07 16:08 | Emergency (ER) | payer MEDICARE, MEDICAID ==
[~2022-02-07] VITALS: Ht 162.6 cm; Wt 61.3 kg
[2022-02-07] MEDS ORDERED: normal saline 1000ML IV soln IV ONE (17:40)
[2022-02-07 18:20] LABS: BASOPHILS % (AUTO) 0.9 % (0-1); EOSINOPHILS # (AUTO) 0.1 X10'3 (0-0.9); EOSINOPHILS % (AUTO) 1.6 % (0-6); HEMATOCRIT 34.1 % (35.0-45.0); HEMOGLOBIN 11.4 g/dl (12.0-16.0); LYMPHOCYTES # (AUTO) 1.2 X10'3 (1.1-4.8); LYMPHOCYTES % (AUTO) 33.2 % (21-51); MEAN CORPUSCULAR HEMOGLOBIN 33.2 PG (27.0-31.0); MEAN CORPUSCULAR HGB CONC 33.5 g/dL (33.0-36.5); MEAN CORPUSCULAR VOLUME 99.2 FL (78-98); MEAN PLATELET VOLUME 7.9 FL (7.4-10.4); MONOCYTES # (AUTO) 0.6 X10'3 (0-0.9); MONOCYTES % (AUTO) 15.5 % (2-12); NEUTROPHILS # (AUTO) 1.8 X10'3 (1.8-7.7); NEUTROPHILS % (AUTO) 48.8 % (42-75); PLATELET COUNT 193 X10'3 (140-440); RED BLOOD COUNT 3.44 X10'6 (4.20-5.60); RED CELL DISTRIBUTION WIDTH 14.8 % (11.5-14.5); WHITE BLOOD COUNT 3.6 X10'3 (4.5-11.0)
[2022-02-07 18:35] LABS: ALANINE AMINOTRANSFERASE 18 U/L (12-78); ALBUMIN 3.4 G/DL (3.4-5.0); ALBUMIN/GLOBULIN RATIO 0.9 (1.1-1.5); ALKALINE PHOSPHATASE 94 IU/L (46-116); ANION GAP 6 (8-16); ASPARTATE AMINO TRANSFERASE 17 U/L (10-37); BILIRUBIN,TOTAL 0.1 MG/DL (0.1-1.0); BLOOD UREA NITROGEN 12 MG/DL (7-18); BUN/CREATININE RATIO 17.4 (6.6-38.0); CALCIUM 9.3 MG/DL (8.5-10.1); CHLORIDE 104 MMOL/L (99-107); CREATININE 0.69 MG/DL (0.40-0.90); GLUCOSE 85 MG/DL (70-104); POTASSIUM 4.3 MMOL/L (3.5-5.1); SODIUM 138 MMOL/L (135-145); TOTAL CARBON DIOXIDE 28.3 MMOL/L (24-32); TOTAL PROTEIN 7.1 G/DL (6.4-8.2); eGFR 85 ML/MIN
[2022-02-07 20:05] VITALS: BP 156/95
[2022-02-07 20:36] LABS: TOTAL CELLS COUNTED 100
[2022-02-07 20:37] LABS: PLATELET ESTIMATE NORMAL
== END 2022-02-07 20:07 | disposition home or self-care (01) ==
LOC: ER 16:09
DX: K64.9 Unspecified hemorrhoids (principal); K21.9 Gastro-esophageal reflux disease without esophagitis; J44.9 Chronic obstructive pulmonary disease, unspecified; E03.9 Hypothyroidism, unspecified; Z91.011 Allergy to milk products; Z88.5 Allergy status to narcotic agent; Z88.8 Allergy status to other drugs, medicaments and biological substances; Z79.899 Other long term (current) drug therapy
CPT/HCPCS: 36415; 80053; 85007; 85025; 86885; 86900; 86901; 96360; 99284; J7030

== ENCOUNTER 2023-03-05 15:52 | Emergency (ER) | payer MEDICARE, MEDICAID ==
[~2023-03-05] VITALS: Ht 144.8 cm; Wt 45.5 kg
[~2023-03-05 15:52] MED LIST changes: +HYDR200T73 PO; -HYDR200T84 PO
[2023-03-05 16:06] VITALS: TEMP 97.8
[2023-03-05 17:25] LABS: BASOPHILS % (AUTO) 0.5 % (0-1); EOSINOPHILS % (AUTO) 1.1 % (0-6); HEMATOCRIT 39.9 % (35.0-45.0); HEMOGLOBIN 13.7 g/dl (12.0-16.0); LYMPHOCYTES # (AUTO) 0.9 X10'3 (1.1-4.8); MEAN CORPUSCULAR HGB CONC 34.3 g/dL (33.0-36.5); MEAN CORPUSCULAR VOLUME 99.2 FL (78-98); MEAN PLATELET VOLUME 7.2 FL (7.4-10.4); MONOCYTES # (AUTO) 0.9 X10'3 (0-0.9); MONOCYTES % (AUTO) 20.3 % (2-12); NEUTROPHILS # (AUTO) 2.4 X10'3 (1.8-7.7); NEUTROPHILS % (AUTO) 56.1 % (42-75); PLATELET COUNT 198 X10'3 (140-440); RED BLOOD COUNT 4.02 X10'6 (4.20-5.60); RED CELL DISTRIBUTION WIDTH 13.4 % (11.5-14.5); WHITE BLOOD COUNT 4.2 X10'3 (4.5-11.0)
[2023-03-05 17:34] LABS: ALANINE AMINOTRANSFERASE 19 U/L (12-78); ALBUMIN 3.7 G/DL (3.4-5.0); ALBUMIN/GLOBULIN RATIO 0.9 (1.1-1.5); ALKALINE PHOSPHATASE 86 IU/L (46-116); ANION GAP 8 (8-16); BILIRUBIN,TOTAL 0.3 MG/DL (0.1-1.0); BLOOD UREA NITROGEN 20 MG/DL (7-18); CALCIUM 9.4 MG/DL (8.5-10.1); CHLORIDE 102 MMOL/L (99-107); CREATININE 0.77 MG/DL (0.40-0.90); GLUCOSE 86 MG/DL (70-104); SODIUM 138 MMOL/L (135-145); TOTAL CARBON DIOXIDE 28.1 MMOL/L (24-32); TOTAL PROTEIN 7.9 G/DL (6.4-8.2); eCRCL 44 ML/MIN; eGFR 75 ML/MIN
[2023-03-05 17:40] LABS: ASPARTATE AMINO TRANSFERASE 34 U/L (10-37); POTASSIUM 5.3 MMOL/L (3.5-5.1)
[2023-03-05 18:14] LABS: APTT 29 SECONDS (22-32); INR 1.1 INR; PROTHROMBIN TIME 11.5 SECONDS (9.0-12.0)
[2023-03-05 18:22] LABS: PLATELET ESTIMATE NORMAL; TOTAL CELLS COUNTED 100
[2023-03-05 18:23] LABS: LARGE PLATELETS FEW
[2023-03-05 18:27] LABS: FERRITIN 334 NG/ML (8-252)
[2023-03-05 18:31] LABS: % IRON SATURATION 17 % (11-46); IRON 59 UG/DL (49-151); TOTAL IRON BINDING CAPACITY 346 UG/DL (259-388)
[2023-03-05 18:38] LABS: BILIRUBIN,URINE NEGATIVE (Neg); CLARITY,URINE CLEAR (Clear); COLOR,URINE YELLOW (Yellow); GLUCOSE, URINE NEGATIVE (Neg); KETONES,URINE NEGATIVE (Neg); LEUKOCYTE ESTERASE ,URINE NEGATIVE (Neg); NITRITES, URINE NEGATIVE (Neg); OCCULT BLOOD,URINE NEGATIVE (Neg); PROTEIN,URINE NEGATIVE (Neg); UROBILINOGEN,URINE 0.2 E.U/dL (0.2-1.0)
[2023-03-05 18:47] LABS: UA COLLECTION TYPE CLN CATCH MIDSTREAM
[2023-03-05 18:54] LABS: OCCULT BLOOD STOOL POSITIVE (Neg)
[2023-03-05] MEDS ORDERED: normal saline 1000ML IV soln IVB ONE (19:05)
[2023-03-05 21:22] VITALS: BP 173/93; PULSE 90; RESP 12; O2SAT 97
== END 2023-03-05 21:29 | disposition home or self-care (01) ==
LOC: ER 15:53
DX: K64.9 Unspecified hemorrhoids (principal); K21.9 Gastro-esophageal reflux disease without esophagitis; J44.9 Chronic obstructive pulmonary disease, unspecified; E03.9 Hypothyroidism, unspecified; Z91.040 Latex allergy status; Z79.899 Other long term (current) drug therapy; Z79.1 Long term (current) use of non-steroidal anti-inflammatories (NSAID); Z79.2 Long term (current) use of antibiotics
CPT/HCPCS: 36415; 71045; 80053; 81003; 82272; 82728; 83540; 83550; 85007; 85025; 85610; 85730; 86885; 86900; 86901; 93005; 99285; J7030; J7040; C1758

== ENCOUNTER 2024-01-26 13:15 | Emergency (ER) | payer MEDICARE, MEDICAID ==
[~2024-01-26] VITALS: Ht 152.4 cm; Wt 81.0 kg
[2024-01-26 14:33] LABS: BASOPHILS % (AUTO) 0.9 % (0-1); EOSINOPHILS # (AUTO) 0.1 X10'3 (0-0.9); EOSINOPHILS % (AUTO) 2.1 % (0-6); HEMATOCRIT 36.6 % (35.0-45.0); HEMOGLOBIN 12.2 g/dl (12.0-16.0); LYMPHOCYTES % (AUTO) 25.1 % (21-51); MEAN CORPUSCULAR HEMOGLOBIN 32.5 PG (27.0-31.0); MEAN CORPUSCULAR HGB CONC 33.5 g/dL (33.0-36.5); MEAN PLATELET VOLUME 7.7 FL (7.4-10.4); MONOCYTES # (AUTO) 0.7 X10'3 (0-0.9); NEUTROPHILS # (AUTO) 2.3 X10'3 (1.8-7.7); NEUTROPHILS % (AUTO) 55.9 % (42-75); PLATELET COUNT 193 X10'3 (140-440); RED BLOOD COUNT 3.77 X10'6 (4.20-5.60); RED CELL DISTRIBUTION WIDTH 12.7 % (11.5-14.5); WHITE BLOOD COUNT 4.1 X10'3 (4.5-11.0)
[2024-01-26 14:49] VITALS: PULSE 81
[2024-01-26 14:52] LABS: ALANINE AMINOTRANSFERASE 26 U/L (12-78); ALBUMIN 3.4 G/DL (3.4-5.0); ALBUMIN/GLOBULIN RATIO 0.8 (1.1-1.5); ALKALINE PHOSPHATASE 71 IU/L (46-116); ANION GAP 6 (8-16); ASPARTATE AMINO TRANSFERASE 24 U/L (10-37); BILIRUBIN,TOTAL 0.2 MG/DL (0.1-1.0); BLOOD UREA NITROGEN 29 MG/DL (7-18); BUN/CREATININE RATIO 27.6 (10.0-20.0); CALCIUM 9.3 MG/DL (8.5-10.1); CHLORIDE 104 MMOL/L (99-107); CREATININE 1.05 MG/DL (0.40-0.90); GLUCOSE 117 MG/DL (70-104); POTASSIUM 4.7 MMOL/L (3.5-5.1); SODIUM 141 MMOL/L (135-145); TOTAL CARBON DIOXIDE 31.4 MMOL/L (24-32); TOTAL PROTEIN 7.6 G/DL (6.4-8.2); eGFR 52 ML/MIN
[2024-01-26 15:56] VITALS: BP 137/81; RESP 18; TEMP 96.8; O2SAT 95
== END 2024-01-26 16:01 | disposition home or self-care (01) ==
LOC: ER 13:15
DX: I10 Essential (primary) hypertension (principal); J44.9 Chronic obstructive pulmonary disease, unspecified; K21.9 Gastro-esophageal reflux disease without esophagitis; E03.9 Hypothyroidism, unspecified; Z88.8 Allergy status to other drugs, medicaments and biological substances; Z88.5 Allergy status to narcotic agent; Z79.899 Other long term (current) drug therapy
CPT/HCPCS: 80053; 84484; 85025; 93005; 99284

== ENCOUNTER 2024-07-06 15:57 | Inpatient (IN) | payer MEDICARE, MEDICAID ==
[~2024-07-06] VITALS: Ht 152.4 cm; Wt 61.8 kg
[2024-07-06] MEDS: normal saline 1000ML IV soln IVB ONE (17:34)
[2024-07-06 17:41] LABS: BASOPHILS % (AUTO) 0.4 % (0-1); EOSINOPHILS # (AUTO) 0.1 X10'3 (0-0.9); EOSINOPHILS % (AUTO) 2.2 % (0-6); HEMATOCRIT 40.8 % (35.0-45.0); HEMOGLOBIN 13.6 g/dl (12.0-16.0); LYMPHOCYTES # (AUTO) 0.9 X10'3 (1.1-4.8); LYMPHOCYTES % (AUTO) 18.1 % (21-51); MEAN CORPUSCULAR HGB CONC 33.3 g/dL (33.0-36.5); MEAN CORPUSCULAR VOLUME 93.2 FL (78-98); MEAN PLATELET VOLUME 7.8 FL (7.4-10.4); MONOCYTES # (AUTO) 0.7 X10'3 (0-0.9); MONOCYTES % (AUTO) 14.2 % (2-12); NEUTROPHILS # (AUTO) 3.3 X10'3 (1.8-7.7); NEUTROPHILS % (AUTO) 65.1 % (42-75); PLATELET COUNT 189 X10'3 (140-440); RED BLOOD COUNT 4.37 X10'6 (4.20-5.60); RED CELL DISTRIBUTION WIDTH 15.6 % (11.5-14.5)
[2024-07-06 17:58] LABS: ALANINE AMINOTRANSFERASE 22 U/L (12-78); ALBUMIN 3.5 G/DL (3.4-5.0); ALBUMIN/GLOBULIN RATIO 0.7 (1.1-1.5); ALKALINE PHOSPHATASE 135 IU/L (46-116); ANION GAP 8 (8-16); ASPARTATE AMINO TRANSFERASE 23 U/L (10-37); BILIRUBIN,TOTAL 0.2 MG/DL (0.1-1.0); BLOOD UREA NITROGEN 79 MG/DL (7-18); BUN/CREATININE RATIO 39.5 (10.0-20.0); CALCIUM 9.8 MG/DL (8.5-10.1); CHLORIDE 100 MMOL/L (99-107); GLUCOSE 100 MG/DL (70-104); SODIUM 137 MMOL/L (135-145); TOTAL CARBON DIOXIDE 29.3 MMOL/L (24-32); TOTAL PROTEIN 8.6 G/DL (6.4-8.2); eCRCL 20 ML/MIN; eGFR 25 ML/MIN
[2024-07-06 19:23] LABS: BILIRUBIN,URINE NEGATIVE (Neg); CLARITY,URINE CLEAR (Clear); COLOR,URINE YELLOW (Yellow); GLUCOSE, URINE NEGATIVE (Neg); KETONES,URINE NEGATIVE (Neg); LEUKOCYTE ESTERASE ,URINE NEGATIVE (Neg); NITRITES, URINE NEGATIVE (Neg); OCCULT BLOOD,URINE NEGATIVE (Neg); PH,URINE 5.5 (4.8-8.0); PROTEIN,URINE NEGATIVE (Neg); UROBILINOGEN,URINE 0.2 E.U/dL (0.2-1.0)
[2024-07-06 19:24] LABS: UA COLLECTION TYPE STRAIGHT CATH
[2024-07-06] MEDS ORDERED: magnesium sulf-water 4G/100mL 100 ML IV PRN (20:00)
[2024-07-06] MEDS ORDERED: mag hydrox/Alum hydrox/simeth 30ml oral suspension PO PRN (20:00)
[2024-07-06] MEDS ORDERED: magnesium Cl slow-release 64mg tablet PO PRN (20:00)
[2024-07-06] MEDS: K and/or MAG REPLACEMENT MC SCH (20:00)
[2024-07-06] MEDS ORDERED: magnesium sulf-water 2g/50mL 50 ML IV PRN (20:00)
[2024-07-06] MEDS ORDERED: potassium Cl 40MEQ/1/2NS 520ml 520 ML IV PRN (20:00)
[2024-07-06] MEDS ORDERED: acetaminophen 325mg tablet PO PRN (20:00)
[2024-07-06] MEDS ORDERED: potassium Cl 20 mEq SR tablet PO PRN ×2 (20:00)
[2024-07-06] MEDS: docusate sod 100mg capsule PO SCH (20:00)
[2024-07-06] MEDS ORDERED: ondansetron/PF 4mg/2ml inj IV PRN (20:00)
[2024-07-06] MEDS ORDERED: magnesium hydroxide 30ml (MOM) UD suspension PO PRN (20:00)
[2024-07-06] MEDS ORDERED: FURO-150 PO (20:19)
[2024-07-06] MEDS ORDERED: BISA10SU11 RC (20:19)
[2024-07-06] MEDS ORDERED: CARV-50 PO (20:19)
[2024-07-06] MEDS ORDERED: KEP500T PO (20:19)
[2024-07-06] MEDS ORDERED: ACET-895 PO (20:19)
[2024-07-06] MEDS ORDERED: OMEG12002 (20:19)
[2024-07-06] MEDS ORDERED: CYCL-1 PO (20:19)
[2024-07-06] MEDS ORDERED: LOSA-415 PO (20:19)
[2024-07-06] MEDS ORDERED: cyclobenzaprine 10mg tablet PO PRN (20:25)
[2024-07-06] MEDS ORDERED: LORazepam 1 MG tablet PO PRN (20:25)
[2024-07-06 20:29] LABS: HEMOGLOBIN A1C 5.8 % (4.5-6.2)
[2024-07-06] MEDS: normal saline 1000ml 1,000 ML IV SCH (20:31)
[2024-07-06] MEDS: heparin, porcine 5000 units/ml vial SQ SCH (20:31)
[2024-07-07 01:55] LABS: BASOPHILS % (AUTO) 0.3 % (0-1); EOSINOPHILS # (AUTO) 0.1 X10'3 (0-0.9); EOSINOPHILS % (AUTO) 1.3 % (0-6); HEMATOCRIT 35.7 % (35.0-45.0); HEMOGLOBIN 11.7 g/dl (12.0-16.0); LYMPHOCYTES % (AUTO) 15.2 % (21-51); MEAN CORPUSCULAR HEMOGLOBIN 30.5 PG (27.0-31.0); MEAN CORPUSCULAR HGB CONC 32.9 g/dL (33.0-36.5); MEAN CORPUSCULAR VOLUME 92.7 FL (78-98); MONOCYTES # (AUTO) 0.8 X10'3 (0-0.9); MONOCYTES % (AUTO) 12.2 % (2-12); NEUTROPHILS # (AUTO) 4.5 X10'3 (1.8-7.7); PLATELET COUNT 170 X10'3 (140-440); RED BLOOD COUNT 3.85 X10'6 (4.20-5.60); RED CELL DISTRIBUTION WIDTH 15.1 % (11.5-14.5); WHITE BLOOD COUNT 6.4 X10'3 (4.5-11.0)
[2024-07-07 02:17] LABS: ALANINE AMINOTRANSFERASE 13 U/L (12-78); ALBUMIN 2.7 G/DL (3.4-5.0); ALBUMIN/GLOBULIN RATIO 0.7 (1.1-1.5); ALKALINE PHOSPHATASE 106 IU/L (46-116); ANION GAP 7 (8-16); ASPARTATE AMINO TRANSFERASE 23 U/L (10-37); BILIRUBIN,TOTAL 0.2 MG/DL (0.1-1.0); BLOOD UREA NITROGEN 62 MG/DL (7-18); BUN/CREATININE RATIO 48.4 (10.0-20.0); CALCIUM 8.2 MG/DL (8.5-10.1); CHLORIDE 111 MMOL/L (99-107); CREATININE 1.28 MG/DL (0.40-0.90); GLUCOSE 82 MG/DL (70-104); MAGNESIUM 1.9 MG/DL (1.5-2.4); POTASSIUM 4.1 MMOL/L (3.5-5.1); SODIUM 144 MMOL/L (135-145); TOTAL CARBON DIOXIDE 26.1 MMOL/L (24-32); TOTAL PROTEIN 6.6 G/DL (6.4-8.2); eCRCL 31 ML/MIN; eGFR 42 ML/MIN
[2024-07-07 07:40] VITALS: BP 149/82; PULSE 86; RESP 20; TEMP 97.6; O2SAT 96
[2024-07-07 10:00] VITALS: BP_SYST 124; BP_SYST 140; BP_DIAS 77; BP_DIAS 78; PULSE 71; RESP 13; TEMP 97.4; O2SAT 96
[2024-07-07 11:20] VITALS: RESP 13; O2SAT 96
[2024-07-07] MEDS: pantoprazole 40mg Tablet.DR PO SCH (16:22)
[2024-07-07] MEDS: losartan 50mg tablet PO SCH (16:23)
[2024-07-07] MEDS: divalproex sod 250mg ER (24-hour) tablet PO SCH (16:23)
[2024-07-07] MEDS: levetiracetam 250mg tablet PO SCH (16:23)
[2024-07-07] MEDS: levoTHYROXINE 25mcg tablet PO SCH (16:24)
[2024-07-07] MEDS: furosemide 20MG tablet PO SCH (16:24)
[2024-07-07] MEDS: ESCITALOPRAM 10 mg tablet 10 MG TABLET PO SCH (16:24)
[2024-07-07] MEDS: hydroxychloroquine 200mg tablet PO SCH (16:24)
[2024-07-07] MEDS: acetaminophen 325mg tablet PO SCH (16:25)
[2024-07-07 18:00] VITALS: BP 147/73; PULSE 71; RESP 16; TEMP 97.9; O2SAT 96
[2024-07-07 20:00] VITALS: RESP 18; O2SAT 97
[2024-07-07] MEDS: levetiracetam 100mg/ml oral solution 5ml UD cup PO SCH (20:18)
[2024-07-07 22:00] VITALS: BP 102/81; PULSE 74; RESP 16; TEMP 97.4; O2SAT 96
[2024-07-08] MEDS: levetiracetam-NACL1000mg/100ml 100 ML IV SCH (01:24)
[2024-07-08 06:00] VITALS: BP 157/80; PULSE 77; RESP 16; TEMP 97; O2SAT 93
[2024-07-08 06:41] LABS: BASOPHILS % (AUTO) 0.7 % (0-1); EOSINOPHILS # (AUTO) 0.1 X10'3 (0-0.9); EOSINOPHILS % (AUTO) 3.1 % (0-6); HEMATOCRIT 35.2 % (35.0-45.0); HEMOGLOBIN 11.9 g/dl (12.0-16.0); LYMPHOCYTES % (AUTO) 23.2 % (21-51); MEAN CORPUSCULAR HEMOGLOBIN 32.2 PG (27.0-31.0); MEAN CORPUSCULAR HGB CONC 33.9 g/dL (33.0-36.5); MEAN PLATELET VOLUME 7.7 FL (7.4-10.4); MONOCYTES # (AUTO) 0.6 X10'3 (0-0.9); NEUTROPHILS # (AUTO) 2.5 X10'3 (1.8-7.7); PLATELET COUNT 160 X10'3 (140-440); RED CELL DISTRIBUTION WIDTH 15.1 % (11.5-14.5); WHITE BLOOD COUNT 4.2 X10'3 (4.5-11.0)
[2024-07-08 06:47] LABS: ALANINE AMINOTRANSFERASE 20 U/L (12-78); ALBUMIN 2.8 G/DL (3.4-5.0); ALBUMIN/GLOBULIN RATIO 0.7 (1.1-1.5); ALKALINE PHOSPHATASE 119 IU/L (46-116); ANION GAP 8 (8-16); ASPARTATE AMINO TRANSFERASE 28 U/L (10-37); BILIRUBIN,TOTAL 0.3 MG/DL (0.1-1.0); BLOOD UREA NITROGEN 38 MG/DL (7-18); BUN/CREATININE RATIO 44.7 (10.0-20.0); CALCIUM 8.7 MG/DL (8.5-10.1); CHLORIDE 115 MMOL/L (99-107); CREATININE 0.85 MG/DL (0.40-0.90); GLUCOSE 76 MG/DL (70-104); MAGNESIUM 1.8 MG/DL (1.5-2.4); POTASSIUM 4.6 MMOL/L (3.5-5.1); SODIUM 148 MMOL/L (135-145); TOTAL CARBON DIOXIDE 24.9 MMOL/L (24-32); eCRCL 46 ML/MIN; eGFR 67 ML/MIN
[2024-07-08 08:00] VITALS: RESP 16; O2SAT 93
[2024-07-08 10:00] VITALS: BP 157/76; PULSE 68; RESP 14; TEMP 97.6; O2SAT 93
[2024-07-08 18:00] VITALS: BP 175/84; PULSE 75; RESP 16; TEMP 97.8; O2SAT 93
[2024-07-08] MEDS: lactose-reduced food (Ensure Enlive) - 237ml bottle PO SCH (18:08)
[2024-07-08] MEDS ORDERED: FER300L PO (19:16)
[2024-07-08 20:00] VITALS: RESP 16; O2SAT 93
[2024-07-08 22:00] VITALS: BP 153/75; PULSE 84; RESP 15; TEMP 97.8; O2SAT 94
[2024-07-09 06:00] VITALS: BP 173/75; PULSE 88; RESP 15; TEMP 98; O2SAT 93
[2024-07-09 06:22] LABS: ALANINE AMINOTRANSFERASE 22 U/L (12-78); ALBUMIN 2.9 G/DL (3.4-5.0); ALBUMIN/GLOBULIN RATIO 0.6 (1.1-1.5); ALKALINE PHOSPHATASE 139 IU/L (46-116); ANION GAP 12 (8-16); ASPARTATE AMINO TRANSFERASE 39 U/L (10-37); BILIRUBIN,TOTAL 0.3 MG/DL (0.1-1.0); BLOOD UREA NITROGEN 32 MG/DL (7-18); BUN/CREATININE RATIO 34.8 (10.0-20.0); CALCIUM 9.4 MG/DL (8.5-10.1); CHLORIDE 116 MMOL/L (99-107); CREATININE 0.92 MG/DL (0.40-0.90); GLUCOSE 83 MG/DL (70-104); MAGNESIUM 1.9 MG/DL (1.5-2.4); SODIUM 150 MMOL/L (135-145); TOTAL CARBON DIOXIDE 21.6 MMOL/L (24-32); TOTAL PROTEIN 7.5 G/DL (6.4-8.2); eCRCL 43 ML/MIN; eGFR 61 ML/MIN
[2024-07-09 07:56] LABS: BASOPHILS % (AUTO) 0.4 % (0-1); EOSINOPHILS % (AUTO) 0.4 % (0-6); HEMATOCRIT 36.6 % (35.0-45.0); HEMOGLOBIN 11.9 g/dl (12.0-16.0); LYMPHOCYTES % (AUTO) 12.6 % (21-51); MEAN CORPUSCULAR HEMOGLOBIN 29.7 PG (27.0-31.0); MEAN CORPUSCULAR HGB CONC 32.6 g/dL (33.0-36.5); MEAN CORPUSCULAR VOLUME 91.2 FL (78-98); MEAN PLATELET VOLUME 7.8 FL (7.4-10.4); MONOCYTES # (AUTO) 0.8 X10'3 (0-0.9); MONOCYTES % (AUTO) 10.7 % (2-12); NEUTROPHILS # (AUTO) 5.8 X10'3 (1.8-7.7); NEUTROPHILS % (AUTO) 75.9 % (42-75); PLATELET COUNT 172 X10'3 (140-440); RED BLOOD COUNT 4.01 X10'6 (4.20-5.60); WHITE BLOOD COUNT 7.7 X10'3 (4.5-11.0)
[2024-07-09 08:00] VITALS: RESP 15; O2SAT 88
[2024-07-09] MEDS ORDERED: dextrose 5%-water 1,000 ML IV SCH (08:55)
[2024-07-09 13:00] VITALS: BP 173/98; PULSE 82; RESP 21; TEMP 97.8; O2SAT 90
[2024-07-09 14:30] VITALS: BP_SYST 147; BP_SYST 176; BP_DIAS 121; BP_DIAS 83; PULSE 85; PULSE 86
[2024-07-09 14:33] VITALS: BP_SYST 147; PULSE 86
[2024-07-09] MEDS: hydrALAZINE 20mg/ml inj. IV ONE (14:33)
== END 2024-07-09 15:55 | disposition home or self-care (01) | DRG 640 ==
LOC: ER 15:58 → ED HOLD 20:04 → ORTHO 4S 07-07 07:27
PROVIDERS: ADMIT Internal Medicine Critical Care Medicine; ATTEND Family Medicine
DX: E86.0 Dehydration (principal); N17.0 Acute kidney failure with tubular necrosis; K52.9 Noninfective gastroenteritis and colitis, unspecified; K21.9 Gastro-esophageal reflux disease without esophagitis; E03.9 Hypothyroidism, unspecified; I10 Essential (primary) hypertension; J44.9 Chronic obstructive pulmonary disease, unspecified; Z66 Do not resuscitate; E86.1 Hypovolemia; F32.A Depression, unspecified; Z79.899 Other long term (current) drug therapy; Z88.5 Allergy status to narcotic agent; Z88.8 Allergy status to other drugs, medicaments and biological substances
CPT/HCPCS: 36415; 71045; 76770; 80053; 81003; 83036; 83735; 84145; 84443; 85025; 87081; 87502; 87503; 87811; 92508; 92616; 96360; 96361; 97110; 97162; 97530; 99285; A4353; G0378; J0360; J1644; J1953; J7030